=== PATIENT | female | born 1955 | race Caucasian/White ===

== ENCOUNTER 2016-07-16 10:43 | Day surgery (SDC) | payer OTHER ==
--- NOTE | ~2016-07-16 | EGD ---
EGD REPORT [facility] [address] [address] NAME: VERNA MODI : [birth year] STATUS : REG [facility] [place] PAT#: [id number] AGE: 61 ADM/REG DATE : 07/16/16 MR#: [id number] REPORT SERV DATE: 07/16/16 DICTATED BY: PRICILA HER DATE: 07/16/16 REPORT STATUS : Draft TRANSCRIBED BY: [facility] DATE: 07/16/16 [facility] Center Patient Name: Verna Modi Date of : 1955 Attending MD: PRICILA EHR MD Procedure Date No Time: 07/16/2016 Procedure: Upper GI endoscopy Indications: Dysphagia Referring MD: CHRISTOPHER Darden Medicines: Propofol per Anesthesia Complications: No immediate complications. Estimated blood loss: None. Procedure: Pre-Anesthesia Assessment: - After reviewing the risks and benefits, the patient was deemed in satisfactory condition to undergo the procedure. - Prior to the procedure, a History and Physical was performed, and patient medications and allergies were reviewed. The patient's tolerance of previous anesthesia was also reviewed. The risks and benefits of the procedure and the sedation options and risks were discussed with the patient. All questions were answered, and informed consent was obtained. Prior Anticoagulants: The patient has taken no previous anticoagulant or antiplatelet agents. ASA Grade Assessment: II - A patient with mild systemic disease. After reviewing the risks and benefits, the patient was deemed in satisfactory condition to undergo the procedure. After obtaining informed consent, the endoscope was passed under direct vision. Throughout the procedure, the patient's blood pressure, pulse, and oxygen saturations were monitored continuously. The GIF [id number] was introduced through the mouth, and advanced to the third part of duodenum. The upper GI endoscopy was accomplished without difficulty. The patient tolerated the procedure well. Findings: A gaping lower esophageal sphincter was found. The examined esophagus was normal. Diffuse moderate inflammation characterized by congestion (edema) and granularity was found in the gastric antrum. Biopsies were taken with a cold forceps for histology. The gastroesophageal junction (on retroflexion) was normal. The examined duodenum was normal. EGD REPORT [address] [address] NAME: VERNA MODI : [birth year] STATUS : REG [facility] [place] PAT#: [id number] AGE: 61 ADM/REG DATE : 07/16/16 MR#: [id number] REPORT SERV DATE: 07/16/16 DICTATED BY: PRICILA HER DATE: 07/16/16 REPORT STATUS : Draft TRANSCRIBED BY: [employer] DATE: 07/16/16 Impression: - Gaping lower esophageal sphincter. - Normal esophagus. - Bile gastritis. Biopsied. - Normal gastroesophageal junction. - Normal examined duodenum. - Non-erosive esophageal reflux (NERD) disease present. - Significant oropharyngeal dysphagia without aspiration on recent MBS. Likely largely related to post-operative edema, etc. after cervical spine surgery but need to exclude a neurologic process. - No esophageal pathology. - Allergic rhinitis with poor clearance of secretions due to oropharyngeal dysphagia. Recommendation: - Discharge patient to home (ambulatory). - Aspiration precautions. - Resume previous diet as recommended by Speech Pathology. - Begin Prilosec (omeprazole) 40 mg each morning before breakfast. - Continue intranasal steroids and add an over the counter non-sedating anti-histamine daily. - Go ahead with Neurology evaluation as scheduled. - Patient has a contact number available for emergencies. The signs and symptoms of potential delayed complications were discussed with the patient. Return to normal activities tomorrow. Written discharge instructions were provided to the patient. Procedure Code(s): --- Professional --- 98016, Esophagogastroduodenoscopy, flexible, transoral; with biopsy, single or multiple Diagnosis Code(s): --- Professional --- K22.8, Other specified diseases of esophagus K29.60, Other gastritis without bleeding K21.9, Gastro-esophageal reflux disease without esophagitis R13.10, Dysphagia, unspecified CPT copyright 2013 [employer]. All rights reserved. The codes documented in this report are preliminary and upon family sociologist review may be revised to meet current compliance requirements. EGD REPORT [facility] [address] [place] [place] [address] NAME: VERNA MODI : [birth year] STATUS : REG [facility] [place] PAT#: [id number] AGE: 61 ADM/REG DATE : 07/16/16 MR#: [id number] REPORT SERV DATE: 07/16/16 DICTATED BY: PRICILA HER DATE: 07/16/16 REPORT STATUS : Draft TRANSCRIBED BY: [employer] DATE: 07/16/16 PRICILA HER MD 07/16/2016 1:27 PM This report has been signed electronically. Number of Addenda: 0 Note Initiated On: 07/16/2016 12:55 PM Scope Withdrawal Time 0 hours 0 minutes [address] [place], [place] [address] [address]
[~2016-07-16 10:43] MED LIST: ACET500CAP PO; ALLEGRA180 PO; BANOPHEN25 MG PO; CALTRA600D PO; ENBREL25 MG SC; FLONASE NAS; FOLIC ACID PO; FOLIC PO; MULTIVIT/MIN PO; PAX10 PO; ROBITUSSIN CF PO; TREXALL5 MG PO; TYLENOL PM PO
== END 2016-07-16 23:59 | disposition home or self-care (01) ==
LOC: DMU 10:43
PROVIDERS: Internal Medicine Gastroenterology
PROC: 0DB68ZX Excision of Stomach, Via Natural or Artificial Opening Endoscopic, Diagnostic (ICD-10-PCS; principal; 2016-07-16 12:00)
DX: K29.50 Unspecified chronic gastritis without bleeding (principal); K22.8 Other specified diseases of esophagus; K21.9 Gastro-esophageal reflux disease without esophagitis; M06.9 Rheumatoid arthritis, unspecified; F41.9 Anxiety disorder, unspecified; Z88.2 Allergy status to sulfonamides; Z79.52 Long term (current) use of systemic steroids; Z79.899 Other long term (current) drug therapy; Z98.1 Arthrodesis status; Z98.890 Other specified postprocedural states
CPT/HCPCS: 88305